=== PATIENT | female | born 2000 | race Hispanic/Latino ===

== ENCOUNTER 2021-07-21 16:40 | Emergency (ER) | payer OTHER, SELFPAY | END 2021-07-21 18:29 | disposition home or self-care (01) | LOC: ERS 16:40 | DX: B34.9 Viral infection, unspecified (principal) | CPT/HCPCS: 71045; 87804 ==

== ENCOUNTER 2022-09-20 16:33 | Emergency (ER) | payer SELFPAY ==
[2022-09-20] MEDS ORDERED: Ketorolac Tromethamine 30 MG/ML VIAL ONE ×2 (17:40→17:42)
[2022-09-20] MEDS ORDERED: Dexamethasone 4 mg/ml Vial ONE (17:40)
[2022-09-20] MEDS ORDERED: Dexamethasone 10 MG/ML VIAL ONE (17:44)
[2022-09-20 19:24] LABS: SARS-CoV-2 NAA Rapid Test Not Detected (NotDetected)
== END 2022-09-20 18:31 | disposition home or self-care (01) ==
LOC: ERS 16:33
DX: J02.0 Streptococcal pharyngitis (principal); Z20.822 Contact with and (suspected) exposure to COVID-19
CPT/HCPCS: 87081; 87430; 96372; 99283; J1100; J1885